=== PATIENT | male | born 1970 | race Caucasian/White ===

== ENCOUNTER 2023-07-27 22:32 | Emergency (ER) | payer SELFPAY ==
[2023-07-27 23:17] LABS: SARS-CoV-2 NAA Rapid Test Not Detected (NotDetected)
== END 2023-07-28 00:34 | disposition home or self-care (01) ==
LOC: CSHERS 22:32
DX: B34.9 Viral infection, unspecified (principal); I10 Essential (primary) hypertension; Z20.822 Contact with and (suspected) exposure to COVID-19; Z79.899 Other long term (current) drug therapy; Z79.82 Long term (current) use of aspirin; Z79.02 Long term (current) use of antithrombotics/antiplatelets; Z86.73 Personal history of transient ischemic attack (TIA), and cerebral infarction without residual deficits
CPT/HCPCS: 99283; U0002

== ENCOUNTER 2023-10-06 21:44 | Emergency (ER) | payer OTHER, SELFPAY ==
[2023-10-06] MEDS ORDERED: Acetaminophen 500 MG TAB ONE (22:10)
[2023-10-06] MEDS ORDERED: Ibuprofen 200 MG TAB ONE (22:10)
== END 2023-10-06 23:25 | disposition home or self-care (01) ==
LOC: CSHERS 21:44
DX: S83.92XA Sprain of unspecified site of left knee, initial encounter (principal); I10 Essential (primary) hypertension; I25.10 Atherosclerotic heart disease of native coronary artery without angina pectoris; W01.0XXA Fall on same level from slipping, tripping and stumbling without subsequent striking against object, initial encounter; Y99.0 Civilian activity done for income or pay; Z86.73 Personal history of transient ischemic attack (TIA), and cerebral infarction without residual deficits